=== PATIENT | female | born 1980 | race Two or more races ===

== ENCOUNTER → 2016-10-05 | Outpatient (CLI) | payer OTHER ==
[~2016-10-05] MED LIST: APNO TOP; DERMOPLAST SPRA56 GM TOP; FEOSOL325 MG PO; LEVOTHROID (SY25 MCG PO; MOTRIN800 MG PO; NORCO 5-325 TA1 EACH PO; PRENATAL 1+1)(P1 TAB PO; SURFAK240 MG PO
== END | disposition disaster alternative care site (69) ==
LOC: GLAB 07:47
DX: Z36 Encounter for antenatal screening of mother (principal)

== ENCOUNTER 2017-01-10 00:16 | Outpatient (CLI) | payer OTHER ==
[~2017-01-10] VITALS: Ht 157.5 cm; Wt 78.7 kg
[~2017-01-10 00:16] MED LIST changes: -APNO TOP; -DERMOPLAST SPRA56 GM TOP; -FEOSOL325 MG PO; -MOTRIN800 MG PO; -NORCO 5-325 TA1 EACH PO; -SURFAK240 MG PO
== END 2017-01-10 03:12 | disposition disaster alternative care site (69) ==
LOC: GOBS 00:16 → GOBM 00:16
DX: Z34.90 Encounter for supervision of normal pregnancy, unspecified, unspecified trimester (principal)
CPT/HCPCS: G0463

== ENCOUNTER 2017-01-10 19:26 | Inpatient (IN) | payer OTHER ==
[~2017-01-10] VITALS: Ht 157.5 cm; Wt 77.1 kg
--- NOTE | ~2017-01-10 | OR ---
[facility] AGE[facility] 36 Y [address] ROOM: [place] [address] LOCATION: [facility] ADMIT DATE: 01/10/2017 OR/Procedure Report DISCHARGE DATE: FAMILY PHYSICIAN: YELITZA CHAVEZ MD ATTENDING PHYSICIAN: Vernon Middleton SURGEON: Yelitza Chavez MD MANAGER BUSINESS: DATE OF PROCEDURE: 01/10/2017 PROCEDURE PERFORMED: Spontaneous vaginal delivery over intact perineum. PREOPERATIVE DIAGNOSES: 1. Intrauterine at 39 weeks 3 days. 2. Hypothyroidism. 3. achieved with intrauterine insemination with donor sperm. POSTOPERATIVE DIAGNOSES: 1. Intrauterine at 39 weeks 3 days. 2. Hypothyroidism. 3. achieved with intrauterine insemination with donor sperm. 4. hemorrhage. ESTIMATED BLOOD LOSS: 750 mL. ANESTHESIA: Epidural. FINDINGS: Viable male infant, weighing 8 pounds 10 ounces. Intact placenta with 3-vessel cord. A small piece of detached membrane was also noted from the placenta. Second-degree perineal laceration, which was repaired per routine and hemostatic. ANTIBIOTICS: None indicated. SPECIMENS: Cord blood. COMPLICATIONS: hemorrhage. The patient was given IM Pitocin as IV access was lost. She was also given one dose each of Hemabate, Methergine, and 800 mcg of rectal Cytotec. The patient was stable at the completion of the procedure, and plan was for her to have a repeat H and H approximately 4 hours after delivery. DISPOSITION: The patient is stable and remained in her room. INDICATION FOR PROCEDURE: The patient is a 36-year-old, G1, P0, whose was complicated by hypothyroidism and achievement of [facility] AGE: 36 Y [address] ROOM: [place] [address] LOCATION: [facility] ADMIT DATE: 01/10/2017 OR/Procedure Report DISCHARGE DATE: FAMILY PHYSICIAN: YELITZA CHAVEZ MD ATTENDING PHYSICIAN: Vernon Middleton through intrauterine insemination with donor sperm. She progressed in labor on January 10, 2017, with complaints of contractions. She was 2-3 cm dilated at that time. AROM was performed, and she failed to progress past 4 cm. Pitocin was started for labor augmentation. She then progressed through labor to complete. DESCRIPTION OF PROCEDURE: With maternal expulsive efforts, fetus was delivered in the straight OA presentation. head was allowed to restitute. With the assistance of gentle downward and upward tractions and the maternal expulsive efforts, the shoulders were delivered followed by the remainder of the body. Infant was placed on the mother's chest. Cord was clamped and cut. The patient had lost her IV access during the process of pushing, and she was given a dose of 10 units of intramuscular Pitocin. Gentle downward traction was placed on the cord, and the placenta did not spontaneously deliver. Attention was then turned to the patient's perineum, where a second-degree laceration was noted which was repaired per routine with a 2-0 Vicryl. Placenta was then delivered and appeared to be intact. The patient then noted to have a very large amount of free flow that was not responding to uterine massage. A bimanual exploration was performed with a very small piece of placental membrane removed. The patient continued to have large amount of free flow, and she was given a dose of IM Methergine. Continued massage was performed. She was then given a dose of IM Hemabate and 800 mcg of rectal Cytotec. Bimanual massage was continued to be performed until bleeding slowed. The patient was watched for approximately another 15 minutes and did not appear to have any excessive free flow at that time. Plan was for the patient to have an H and H at 1400 hours, four hours after delivery. She remained in stable condition when I was done with the procedure and remained in the room with her. All needle, sponge, and instrument counts were noted to be correct x2. MD JIA PIMENTEL/zulema /[id number] d: 01/11/172010 t: 01/17/17 1140, OPERATIVE SUMMARY
[2017-01-10 20:40] LABS: BASOPHIL % 0.2 %; EOSINOPHIL % 0.2 %; HEMATOCRIT 39.1 % (33.0-46.0); HEMOGLOBIN 13.5 g/dL (11.0-15.0); IMMATURE GRANULOCYTE % 0.3 %; LYMPHOCYTE # 1.3 K/uL (0.8-4.0); LYMPHOCYTE % 11.4 %; MCH 32.1 pg (27.0-34.0); MCHC 34.5 gm/dL (32.0-36.5); MCV 92.9 fl (83.0-98.0); MONOCYTE # 0.6 K/uL (0.0-1.0); MONOCYTE % 5.1 %; MPV 11.3 fl (9.4-12.4); NEUTROPHIL # (ANC) 9.6 K/uL (1.8-7.8); NEUTROPHIL % 82.8 %; NRBC % 0 /100WBC (0-0.00); PLATELET COUNT 179 K/uL (150-450); RBC 4.21 M/uL (3.50-5.50); RDW-CV 13.1 % (11.9-14.6); WBC 11.6 K/uL (4.0-11.0)
[2017-01-11 14:16] LABS: HEMOGLOBIN 10.2 g/dL (11.0-15.0)
[2017-01-11 14:18] LABS: HEMATOCRIT 29.7 % (33.0-46.0)
--- NOTE | 2017-01-11 17:08 | NUR ---
Last VS: T:97.7 P:116 R: 17 BP: 101/70 Pain ratin Last pain med: Motrin Medicated at: 1045 Effective: Yes Breasts: SOFT Nipples: INTACT-BOTTLE FEEDING Fundus: FIRM, EVEN, MIDLINE Lochia: SMALL, RUBRA Epis/Perineum: APPROXIMATED, SWOLLEN, TENDER Voiding well: YES-VOIDED X1 IN SHOWER Significant event: RECEIVED- PITOCIN 10 IM, METHERGIN, HEMABATE, 800 CYTOTEC RECTALLY AND 20 OF IV PITOCIN, EBL 750, H&H CHECKED @ 1400 WAS 10.2 FROM 11.6, WILL REPEAT CBC IN AM, PT HAS HAD SEVERAL LOOSE STOOLS IMMODIUM 2 DOSES GIVEN LAST @ 1652, PT SHOWERED AND TOLLERATED ACTIVITY WELL, SALINE LOCK IN R) HAND.
[2017-01-12 04:59] LABS: BASOPHIL % 0.1 %; EOSINOPHIL # 0.1 K/uL (0.0-0.5); EOSINOPHIL % 0.4 %; HEMOGLOBIN 8.1 g/dL (11.0-15.0); IMMATURE GRANULOCYTE # 0.1 K/uL (0.0-0.3); IMMATURE GRANULOCYTE % 0.4 %; LYMPHOCYTE # 1.9 K/uL (0.8-4.0); LYMPHOCYTE % 12.1 %; MCHC 35.2 gm/dL (32.0-36.5); MCV 92.7 fl (83.0-98.0); MONOCYTE % 6.4 %; MPV 10.6 fl (9.4-12.4); NEUTROPHIL # (ANC) 12.7 K/uL (1.8-7.8); NEUTROPHIL % 80.6 %; NRBC % 0 /100WBC (0-0.00); PLATELET COUNT 145 K/uL (150-450); RDW-CV 13.2 % (11.9-14.6); WBC 15.8 K/uL (4.0-11.0)
[2017-01-12 05:10] LABS: MCH 32.7 pg (27.0-34.0); RBC 2.48 M/uL (3.50-5.50)
--- NOTE | 2017-01-12 06:00 | NUR ---
VS WNL. BP 96-105/53-66. Pulse 102-112. Pain rating WNL. No pain meds this shift. Fundus 1 down, firm, midline. Scant-small flow. Patient has been up to BR several times independently now. Used some tea pads throughout the night. Saline lock remains in. Repeat CBC this am.
--- NOTE | 2017-01-13 04:10 | NUR ---
VSS, Motrin given at 0315. fundus firm, 2below, home today
[2017-01-13] MEDS ORDERED: SURFAK240 MG PO (11:43)
[2017-01-13] MEDS ORDERED: NORCO 5-325 TA1 EACH PO (11:44)
[2017-01-13] MEDS ORDERED: MOTRIN800 MG PO (11:44)
[2017-01-13] MEDS ORDERED: APNO TOP (11:44)
[2017-01-13] MEDS ORDERED: DERMOPLAST SPRA56 GM TOP (11:44)
[2017-01-13] MEDS ORDERED: FEOSOL325 MG PO (11:45)
== END 2017-01-13 14:30 | disposition disaster alternative care site (69) | DRG 775 ==
LOC: GOBM 19:26 → GOBS 19:27 → GOBM 19:28 → GOBS 01-13 14:30
PROVIDERS: Obstetrics & Gynecology; ADMIT Obstetrics & Gynecology
DX: O70.1 Second degree perineal laceration during delivery (principal); Z37.0 Single live birth; D62 Acute posthemorrhagic anemia; Z3A.39 39 weeks gestation of pregnancy; O99.283 Endocrine, nutritional and metabolic diseases complicating pregnancy, third trimester; E03.9 Hypothyroidism, unspecified
CPT/HCPCS: J2001; J2210; J2590; J3010; J7120